=== PATIENT | female | born 1945 | race Caucasian/White ===

== ENCOUNTER 2017-01-15 21:35 | Emergency (ER) | payer OTHER ==
[~2017-01-15] VITALS: Ht 152.4 cm; Wt 72.5 kg
[~2017-01-15 21:35] MED LIST: CLONIDINE HCL0.1 MG PO; FENOFIBRATE160 M1 PO; HYDROCHLOROTHIA25 MG PO; QUINAPRIL HCL40 MG PO; TOLTERODINE TART4 MG PO
[2017-01-15] MEDS ORDERED: DETROL LA4 MG PO (23:27)
[2017-01-15] MEDS ORDERED: ZOCOR40 MG PO (23:27)
[2017-01-15] MEDS ORDERED: ACCUPRIL40 MG PO (23:27)
[2017-01-15] MEDS ORDERED: CLONIDINE HCL0.1 MG PO (23:27)
[2017-01-15 23:41] VITALS: BP 133/83
== END 2017-01-16 00:12 | disposition home or self-care (01) ==
LOC: EME → EDBD 21:35 → EME 01-16 00:12
DX: J70.5 Respiratory conditions due to smoke inhalation (principal); J45.909 Unspecified asthma, uncomplicated; F32.9 Major depressive disorder, single episode, unspecified; I10 Essential (primary) hypertension
CPT/HCPCS: 99281; 99285